=== PATIENT | female | born 1960 | race Caucasian/White ===

== ENCOUNTER 2020-06-23 07:37 | Inpatient (IN) | payer MEDICARE, OTHER ==
[2020-06-23] MEDS ORDERED: Morphine 4 MG/ML VIAL ONE (07:57)
[2020-06-23] MEDS ORDERED: Morphine 4 MG/ML VIAL IV SCH (08:00)
[2020-06-23] MEDS ORDERED: hydrALAZINE 20 MG/ML VIAL SLOW IVP PRN (08:39)
[2020-06-23] MEDS ORDERED: Dextrose 5% in Water 1,000 ML IV PRN (08:39)
[2020-06-23] MEDS ORDERED: Insulin Regular 300 UNITS/3 ML VIAL SC PRN ×2 (08:39)
[2020-06-23] MEDS ORDERED: Ondansetron PF 4 MG/2 ML Vial IVP PRN (08:39)
[2020-06-23] MEDS ORDERED: Ibuprofen 800 MG TAB PO PRN (08:39)
[2020-06-23] MEDS ORDERED: Ondansetron ODT 4 MG TAB PO PRN ×2 (08:39→08:53)
[2020-06-23] MEDS ORDERED: Acetaminophen 500 MG TAB PO SCH (08:39)
[2020-06-23] MEDS ORDERED: Dextrose 50% Abboject 50 ML SYRINGE SLOW IVP PRN (08:39)
[2020-06-23] MEDS ORDERED: Ibuprofen 600 MG TAB PO PRN (08:50)
--- NOTE | 2020-06-23 09:32 | CON ---
DATE OF CONSULTATION: HISTORY OF PRESENT ILLNESS: We were asked by Trauma and ER to see the patient. The patient was sent over from [place]. She was in her shower, slipped on the rug, landing on her left side. She also has a contusion to her left forearm and the right upper extremity hurts a little bit, but she is moving both these well. She was unable to do much. She was able to get up on the commode and called friends and EMS summoned when she came in to have a left femoral neck fracture. Currently, she is in moderate amount of pain. We just ordered some morphine for her. Daughter is at the bedside. Otherwise, she appears to be resting comfortably as long as we do not move that left lower extremity. It is outward rotated and a little bit shortened. She does have symptoms of neuropathy from her diabetes, but it is mild and she can feel pressure on her feet. Otherwise, no other sensation changes on that left side with breaking the hip. She lives alone, but family and [employer] folks are very close and would be helpful in her rehab. She is quite adamant about going home as soon as possible. We did talk about hemiarthroplasty versus a total hip and she would prefer to do whichever one can get her home, as I reiterated to her we are going to do what is going to be best for her and longevity and make sure that she is safe and she understands this. Other than the arm, she did not hit her head. No loss of consciousness. She remembers the incident vividly. No dizziness or blacking out that caused the fall, it was just a slip. PAST MEDICAL HISTORY: COPD, some of it exercise induced or movement induced; hypertension; diabetes; obesity; and some neuropathy. PAST SURGICAL HISTORY: Two C-sections. PSYCHIATRIC HISTORY: Normal, but she is a little bit of worrier. SOCIAL HISTORY: Lives alone. . Has not drink, smoke, or done any drugs for 20+ years. She has done so after finding God. FAMILY HISTORY: For this event is noncontributory. ALLERGIES: NO KNOWN DRUG ALLERGIES. CURRENT MEDICATIONS: 1. Singulair. 2. Gabapentin. 3. Metformin. 4. Crestor. 5. Losartan. 6. Potassium. 7. Tylenol. 8. She also takes a fair amount of OTC vitamins. REVIEW OF SYSTEMS: Other than some movement-induced shortness of breath, diabetes, some neuropathy, and some left hip pain and forearm pain secondary to her fall, she denies any current shortness of breath, chest pain, bowel or bladder problems. Her neuropathy is mild. She denies any other positive review of systems. PHYSICAL EXAMINATION: GENERAL: Well-nourished, well-developed, obese female, resting in bed, in room 3332, in no acute distress. Speech clear. Affect pleasant. Answers questions appropriately. She is oriented x3. Family is at bedside. HEENT: Scalp atraumatic. Face symmetric. Tongue midline. NECK: Supple. UPPER EXTREMITIES: Equal size, shape, symmetry. Normal bulk and tone. She has a little bit of edema to the left forearm; right, she fell on also, but I do not see any increased edema. She is moving both upper extremities well. Sensations intact as are movements. RESPIRATORY: Respirations are 16, no acute distress. PELVIS: No pain with rocking, but does increase left hip pain. LOWER EXTREMITIES: Equal size, shape, and symmetry. Normal bulk and tone. She is tender to palpation over the left groin, greater troch, hip area. She is able to move her lower extremities from the knees down equally. Sensations are good. She does have tingling in her feet. Pulses are intact. IMAGING DATA: X-rays show a left femoral neck fracture. LABORATORY DATA: CBC; WBC is 11.8, platelets normal, H and H normal. Chemistries; glucose 273 . Rest of chemistries are normal. ASSESSMENT: Fall with ensuing left hip fracture. PLAN: Plan is to do a total hip replacement. I have gone over a hemiarthroplasty and a total hip arthroplasty with the patient. Due to her size and her continued good activity, total hip would be much better for the patient. The patient again has family, her daughter is at the bedside. She is adamant about getting home as soon as possible. I reiterated to the patient again that we need to make sure she is safe, so she does not have further injuries upon discharging to home, which she understands. She is a little bit of a worrier. I tried to reassure, we will take good care of her and get her set up for surgery. I did go over the risks and benefits of surgery. Their questions and concerns have been addressed and the family and the patient are amenable to go forth with surgery. We will get her set up for a total hip arthroplasty tomorrow. We will let her rep know. Antibiotics will be ordered. She can eat today. Pain medications and medical management per Trauma. Job ID: [id number]
[2020-06-23] MEDS: Acetaminophen 325 MG TAB PO SCH ×3 (09:37→22:00)
[2020-06-23] MEDS: Famotidine 20 MG TAB PO SCH ×2 (09:37→22:00)
[2020-06-23] MEDS: traMADol HCl 50 MG TAB PO SCH ×3 (09:38→22:02)
[2020-06-23] MEDS: Cyclobenzaprine 10 MG TAB PO PRN ×2 (09:39→17:09)
[2020-06-23 12:41] VITALS: BMI 53.1
--- NOTE | 2020-06-23 15:09 | HP ---
CHIEF COMPLAINT: Left hip pain. HISTORY OF PRESENT ILLNESS: Ms. Urrutia is a 60-year-old female, BMI of 53.1, history of COPD, hypertension, diabetes, and some neuropathy, who was transferred from [place] this morning after a slip and fall in her bathroom, landing on her left side. She also had pain on the left forearm and right upper extremity. The patient was unable to do much. She was able to get back up on her commode and called a friend for help. The patient believes she is down for about 15 minutes before EMS was able to help her out. The patient is currently in mild pain. The daughter was at bedside this morning when we evaluated the patient. The patient lives alone at home but has a daughter and son who are about 10 and 30 minutes away from them, she lives in a close knit family and would be able to help her with outpatient rehab. The patient is expressing physical therapy outpatient and would like to go home after surgery. The patient's surgery will be on Thursday for total hip arthroplasty. Discussed with Dr. Platt. The patient denies chest pain, shortness of breath, loss of consciousness, nausea, vomiting, blurred vision. REVIEW OF SYSTEM: Negative except what was mentioned above, 10 system review of systems was assessed. PAST MEDICAL HISTORY: COPD, hypertension, diabetes, obesity, and neuropathy. PAST SURGICAL HISTORY: Two C sections. SOCIAL HISTORY: Lives alone close to her family. Does not drink, smoke, or do drugs. FAMILY HISTORY: Unknown. ALLERGIES: NO KNOWN ALLERGIES. MEDICATIONS: 1. Singulair. 2. Gabapentin. 3. Metformin. 4. Crestor. 5. Losartan. 6. Potassium. 7. Tylenol. 8. She also takes a fair amount of vitamins. PHYSICAL EXAMINATION: VITAL SIGNS: Temp 98.4, pulse 100, respiratory rate 18, O2 saturation 94, blood pressure 111/64. GENERAL: Obese female sitting up in bed, no acute distress. HEENT: Normocephalic, atraumatic. NECK: Supple. Trachea midline. CARDIAC: Nasal cannula on during exam. Speaking in full sentences. No respiratory distress. Regular rate and rhythm. ABDOMEN: Protuberant, nontender to palpation EXTREMITIES: Lower extremity, left hip pain with palpation and diminished sensation bilaterally, some tingling in feet. NEUROLOGIC: GCS 15. IMAGING: X-ray shows femoral neck fracture. LABORATORY DATA: No new labs. ASSESSMENT: 1. One ground level fall. 2. Left femoral neck fracture. 3.COPD, hypertension, diabetes, obesity, and neuropathy PLAN: A 60-year-old female status post ground level fall, left femoral neck fracture. Plan for a total hemiarthroplasty on Thursday with Dr. Platt. Medically optimized for surgery. Nebulizer treatment Nasalcanula at night time COPD, 2L per patient Diabetes sliding scale Neuropathy gabapentin Consult for PT and OT placed. Start the patient on pain and bowel regimen. Encourage incentive spirometry. Case discussed this morning over the phone with Dr. Perry. Job ID: [id number] [facility]
[2020-06-23] MEDS: Morphine 2 MG/ML VIAL SLOW IVP PRN (17:20)
[2020-06-24] MEDS: Sodium Chloride 0.9% 1,000 ML IV SCH ×3 (00:30→17:53)
[2020-06-24] MEDS: traMADol HCl 50 MG TAB PO SCH ×4 (04:08→21:34)
[2020-06-24] MEDS: Acetaminophen 325 MG TAB PO SCH ×4 (04:09→21:35)
[2020-06-24 06:55] LABS: #Basophils 0.1 thou/uL (0.0-0.2); #Eosinphils 0.2 thou/uL (0.0-0.7); #Lymphocytes 2.9 thou/uL (1.20-3.40); #Neutrophils 5.9 thou/uL (1.40-6.50); %Basophils 0.7 % (0.0-1.0); %Eosinophils 1.7 % (0.0-10.0); %Lymphocytes 28.4 % (21.0-51.0); %Monocytes 10.2 % (0.0-10.0); Hemoglobin 13.6 g/dL (12.0-16.0); Mean Corpuscular Hemoglobin 31.8 pg (27.0-31.0); Mean Corpuscular Volume 93.4 fL (78.0-98.0); Mean Platelet Volume 9.4 fL (7.4-10.4); Platelet Count 220 thou/uL (130-400); RBC Distribution Width 12.1 % (11.5-14.5); Red Blood Cell (RBC) Count 4.27 mill/uL (4.20-5.40)
[2020-06-24 07:23] LABS: Anion Gap 12 mmol/L (10-20); BUN (Urea Nitrogen) 13 mg/dL (9.8-20.1); Calc. Creatinine Clearance 169 mL/min (70-130); Calcium 8.5 mg/dL (7.8-10.44); Carbon Dioxide 25 mmol/L (22-29); Chloride 104 mmol/L (98-107); Glucose 188 mg/dL (70-105); Phosphorus 2.6 mg/dL (2.3-4.7); Potassium 3.9 mmol/L (3.5-5.1); Sodium 137 mmol/L (136-145)
[2020-06-24] MEDS: Famotidine 20 MG TAB PO SCH ×2 (09:17→20:38)
[2020-06-24] MEDS: Cyclobenzaprine 10 MG TAB PO PRN ×2 (09:17→17:59)
[2020-06-24] MEDS ORDERED: CEFAZOLIN 2 GM in Premix Bag 1 BAG IVPB SCH (12:45)
[2020-06-24] MEDS ORDERED: Vancomycin 1.5 GRAM/300 ML BAG 1.5 GM in Premix Bag 1 BAG IVPB SCH (13:00)
--- NOTE | 2020-06-24 14:10 | PRG ---
DATE OF SERVICE: 06/24/2020 SUBJECTIVE: A 60-year-old female patient. Significant past history of diabetes, neuropathy, hypertension, hyperlipidemia. status post ground level fall with left femoral neck fracture. The patient is planned to go to the OR tomorrow morning for a total knee arthroplasty with Dr. Platt. The patient's pain is well controlled on the floor. PHYSICAL EXAMINATION: VITAL SIGNS: Temp 97.9, pulse 85, respiratory rate 16, O2 saturation 93, and blood pressure 125/81. GENERAL: Obese female, sitting upright in bed, a plate of food in front of her. CARDIAC: Nasal cannula 2 L at nighttime. Speaking in full sentences. No respiratory distress. ABDOMEN: Protuberant, nontender to palpation. EXTREMITIES: Left lower extremity torn compared to the right. Palpable pulses PT, DP bilaterally. Mild tingling in feet. NEUROLOGIC: GCS 15. IMAGING: X-ray shows femoral neck fracture. LABORATORY DATA: White blood cell count 10, hemoglobin 13, hematocrit 39.9, platelets 220. Chemistry; sodium 137, potassium 3.9, chloride 104, bicarbonate 25, BUN 13, creatinine 0.77, phosphorous 2.6, magnesium 2.0. ASSESSMENT: 1. Status post ground level fall. 2. Left femoral neck fracture, OR tomorrow. 3. Past medical history of chronic obstructive pulmonary disease, hypertension, diabetes, obesity, and neuropathy. PLAN: 1. A 60-year-old female status post ground level fall. Plan for OR tomorrow with Dr. Platt for a total hemiarthroplasty. 2. The patient is medically optimized for surgery. 3. Continue nebulized treatments. 4. Nasal cannula for COPD, 2 L at nighttime. 5. Diabetes. Insulin sliding scale. Controlled. 6. Neuropathy, the patient is on gabapentin controlled. Consult PT, OT. The patient will be seen by them following surgery. We will continue the patient on bowel and pain regimen. Encourage incentive spirometry and GI prophylaxis. Job ID: [id number] [facility]
[2020-06-24] MEDS: Morphine 2 MG/ML VIAL SLOW IVP PRN (20:38)
[2020-06-24] MEDS: Montelukast Sodium 10 mg Tablet PO SCH (21:35)
[2020-06-24 22:19] LABS: SARS-CoV-2 PCR by NAA Not Detected (NotDetected)
[2020-06-25] MEDS: Sodium Chloride 0.9% 1,000 ML IV SCH ×3 (02:33→15:56)
[2020-06-25] MEDS: Acetaminophen 325 MG TAB PO SCH ×4 (03:51→21:21)
[2020-06-25] MEDS: traMADol HCl 50 MG TAB PO SCH ×4 (03:52→21:22)
[2020-06-25] MEDS: Morphine 2 MG/ML VIAL SLOW IVP PRN (04:45)
[2020-06-25 06:24] LABS: #Basophils 0.1 thou/uL (0.0-0.2); #Eosinphils 0.2 thou/uL (0.0-0.7); #Lymphocytes 2.2 thou/uL (1.20-3.40); #Neutrophils 6.8 thou/uL (1.40-6.50); %Basophils 0.9 % (0.0-1.0); %Eosinophils 1.9 % (0.0-10.0); %Lymphocytes 21.8 % (21.0-51.0); %Monocytes 9.6 % (0.0-10.0); %Neutrophils 65.8 % (42.0-75.0); Hemoglobin 13.7 g/dL (12.0-16.0); Mean Corpuscular HGB CONC 33.8 g/dL (32.0-36.0); Mean Corpuscular Hemoglobin 32.1 pg (27.0-31.0); Mean Corpuscular Volume 94.9 fL (78.0-98.0); Mean Platelet Volume 9.3 fL (7.4-10.4); Platelet Count 184 thou/uL (130-400); RBC Distribution Width 11.7 % (11.5-14.5); Red Blood Cell (RBC) Count 4.28 mill/uL (4.20-5.40); White Blood Cell (WBC) Count 10.3 thou/uL (4.8-10.8)
[2020-06-25 06:53] LABS: Anion Gap 12 mmol/L (10-20); BUN (Urea Nitrogen) 11 mg/dL (9.8-20.1); Calc. Creatinine Clearance 150 mL/min (70-130); Calcium 8.5 mg/dL (7.8-10.44); Carbon Dioxide 27 mmol/L (22-29); Chloride 104 mmol/L (98-107); Glucose 213 mg/dL (70-105); Magnesium 1.9 mg/dL (1.6-2.6); Phosphorus 2.1 mg/dL (2.3-4.7); Sodium 139 mmol/L (136-145)
[2020-06-25] MEDS: Famotidine 20 MG TAB PO SCH ×2 (08:25→21:21)
[2020-06-25] MEDS: Polyethylene Glycol 3350 17 GM Packet PO SCH (08:25)
[2020-06-25] MEDS ORDERED: Tranexamic Acid 1,000 MG in Sodium Chloride 0.9% 250 ML 250 ML IVPB SCH (08:45)
[2020-06-25] MEDS ORDERED: Senokot S 8.6-50 MG TAB PO SCH (09:00)
[2020-06-25] MEDS ORDERED: Rocuronium Bromide 10 MG/ML (10ML VIAL) ONE (10:15)
[2020-06-25] MEDS ORDERED: Glycopyrrolate 0.2 MG/ML 5 ML SYRINGE ONE (10:15)
[2020-06-25] MEDS ORDERED: PROPOFOL 200 MG/20 ML VIAL ONE (10:15)
[2020-06-25] MEDS ORDERED: Dexamethasone 20 MG/5 ML VIAL ONE (10:15)
[2020-06-25] MEDS ORDERED: Bupivacaine HCl 0.5%/Epinephrine 1:200,000/PF 30 ml Vial ONE (10:15)
[2020-06-25] MEDS ORDERED: Lidocaine 1% PF 5 ML VIAL ONE (10:15)
[2020-06-25] MEDS ORDERED: Ondansetron PF 4 MG/2 ML Vial ONE (10:15)
[2020-06-25] MEDS ORDERED: Midazolam HCl 2 mg/2 ml Vial ONE (10:51)
[2020-06-25] MEDS ORDERED: Fentanyl 100 MCG/2 ML VIAL ONE ×3 (10:51→14:36)
[2020-06-25] MEDS ORDERED: Promethazine HCl 25 MG/ML VIAL IM PRN ×3 (11:02→12:57)
[2020-06-25] MEDS ORDERED: diphenhydrAMINE 25 MG CAP PO PRN (11:02)
[2020-06-25] MEDS ORDERED: Acetaminophen 325 MG TAB PO PRN (11:02)
[2020-06-25] MEDS ORDERED: Zolpidem Tartrate 5 MG TAB PO PRN (11:02)
[2020-06-25] MEDS ORDERED: Ondansetron PF 4 MG/2 ML Vial IVP PRN (11:02)
[2020-06-25] MEDS ORDERED: HYDROcodone/Acetaminophen 10/325 mg Tablet PO PRN ×2 (11:02)
--- NOTE | 2020-06-25 11:04 | PDOC.GSPN ---
Surgery Progress Note: Subj - Subjective Patient reports: pain well controlled, tolerating a regular diet Narrative: Ms. Lizz Stoddard 60YOF admitted 06/23/2020 for right femoral neck fracture after fall. Patient is scheduled for hip replacement surgery today. Pt not in any pain unless she moves, NPO. Surgery Progress Note: Obj - Vital signs Vital signs: Vital Signs - Most Recent Temp Pulse Resp BP Pulse Ox 97.9 F 84 18 173/96 H 97 06/25/20 04:38 06/25/20 04:38 06/25/20 04:38 06/25/20 04:38 06/25/20 08:00 - Physical Exam General: no distress, well nourished, no pain ENT: normal mucosa Neck: trachea midline Cardiovascular: regular rate and rhythm, no murmur Respiratory: clear to auscultation, breath sounds present Abdomen: soft, non tender Integumentary: no rash Psychiatric: oriented to person, oriented to place, speech is normal Surgery Progress Note: Results - Labs Result Diagrams: 06/26/20 05:36 06/25/20 05:32 Lab results: Laboratory Results - last 12 hr 06/24/20 06/25/20 06/25/20 15:53 05:32 05:32 WBC 10.3 RBC 4.28 Hgb 13.7 Hct 40.6 MCV 94.9 MCH 32.1 H MCHC 33.8 RDW 11.7 Plt Count 184 MPV 9.3 Neutrophils % 65.8 Lymphocytes % 21.8 Monocytes % 9.6 Eosinophils % 1.9 Basophils % 0.9 Neutrophils # 6.8 H Lymphocytes # 2.2 Monocytes # 1.0 H Eosinophils # 0.2 Basophils # 0.1 Sodium 139 Potassium 4.0 Chloride 104 Carbon Dioxide 27 Anion Gap 12 BUN 11 Creatinine 0.87 Estimated GFR (MDRD) 67 Glucose 213 H POC Glucose 252 H Calcium 8.5 Phosphorus 2.1 L Magnesium 1.9 06/25/20 05:45 WBC RBC Hgb Hct MCV MCH MCHC RDW Plt Count MPV Neutrophils % Lymphocytes % Monocytes % Eosinophils % Basophils % Neutrophils # Lymphocytes # Monocytes # Eosinophils # Basophils # Sodium Potassium Chloride Carbon Dioxide Anion Gap BUN Creatinine Estimated GFR (MDRD) Glucose POC Glucose 175 H Calcium Phosphorus Magnesium - EKG Data Rate: normal Surgery Progress Note: A/P - Plan Plan: Assessment: Ms. Lizz Stoddard 60YOF admitted 06/23/2020 for right femoral neck fracture after fall. Patient is scheduled for hip replacement surgery today. 1. s/p ground level fall 2. left hip fx. Plan 1. full hip replacement surgery 2. Continue bowel regimen 3. Continue pain management 4. Plan PT/OT after surgery 5. Request swing bed placement Addendum - Attending - Attending Attestation Date/Time: 06/26/20 8985 I personally evaluated the patient and discussed the management with Dr. [] I agree with the History, Examination, Assessment and Plan documented above with any addition or exceptions noted below.
[2020-06-25] MEDS ORDERED: Tranexamic Acid 1,000 MG/10 ML VIAL ONE (11:23)
[2020-06-25] MEDS ORDERED: Vancomycin 1.5 GRAM/300 ML BAG ONE (11:23)
[2020-06-25] MEDS ORDERED: Sodium Chloride 0.9% 100 ML ONE (11:23)
[2020-06-25] MEDS ORDERED: Promethazine HCl 25 MG/ML VIAL SLOW IVP PRN ×2 (12:56→12:57)
[2020-06-25] MEDS ORDERED: Ondansetron HCl/PF 4 MG/2 ML Vial IVP PRN ×2 (12:56→12:57)
[2020-06-25] MEDS ORDERED: SUGAMMADEX SODIUM 200 MG/2 ML VIAL ONE (13:37)
--- NOTE | 2020-06-25 14:13 | RAD ---
2 views of the left hip: 06/25/2020 COMPARISON: 06/23/2020 HISTORY: Fracture status post hip arthroplasty FINDINGS: There is postoperative gas lateral to the left greater trochanter. There is a new left hip arthroplasty presents with no evidence for hardware failure or dislocation. IMPRESSION: Evidence of recent left total hip arthroplasty.
--- NOTE | 2020-06-25 14:45 | OP ---
DATE OF PROCEDURE: 06/23/2020 This is Marlon Torres PA-C dictating a report for Addison Vega MD. PREOPERATIVE DIAGNOSIS: Left hip femoral neck fracture. POSTOPERATIVE DIAGNOSIS: Left hip femoral neck fracture. PROCEDURE PERFORMED: Press-Fit left total hip arthroplasty for fracture treatment. DENTAL ASSOCIATE: Marlon Torres PA-C The acute care certified nursing assistant/co-surgeon was present throughout the entirety of the case. ANESTHESIA: General via endotracheal tube augmented with single-shot BRANDON block. COMPONENTS USED: [employer] Trident II Tritanium cluster acetabular shell 50 mm diameter with an Accolade II size 2 Press-Fit hip stem, 0-degree polyethylene fixed bearing insert, two 6.5 mm low-profile head screws, and a 36 mm, -2.5 neck length femoral head. FINDINGS: Femoral neck fracture as explained on radiograph. ESTIMATED BLOOD LOSS: 150 mL. DRAINS: None. SPECIMENS: None. COMPLICATIONS: Nondisplaced incomplete posterior lip acetabular fracture. INDICATION FOR SURGERY: Lizz is a 60-year-old white female, who sustained a ground level fall yesterday resulting in a left femoral neck fracture. The patient was admitted by Trauma Team and we were asked to see the patient for definitive orthopedic management of this problem. DESCRIPTION OF PROCEDURE: After informed consent was obtained in the preoperative holding area, the patient was taken to the operative suite where general anesthesia was induced. The patient was then positioned in the lateral decubitus position. The hip was then prepped and draped in usual sterile fashion. The patient received preoperative antibiotics. Prior to incision, time-out was called and all members of the surgical team agreed upon site, surgeon, and patient. After this, a longitudinal incision was made directly over the trochanter, noted by palpation extending 2 fingerbreadths above and below the trochanter. The deeper subcutaneous layer was undermined with Bovie electrocautery. The iliotibial band was encountered and incised sharply and the plane below this was developed bluntly. A Charnley retractor was placed to hold this opened. The lateral aspect of the trochanter and the abductor muscles were encountered and then reflected anteriorly off the trochanter using Bovie electrocautery. Once this was completed, the anterior capsule was then encountered and identified and copious capsulotomy was carried out, exposing the femoral neck and head. Dislocation maneuver was then performed and an in situ provisional neck cut was then made using the oscillating saw. Attention was then turned to acetabular preparation. Sequential reaming was carried out up to the appropriate diameter and a trial was then malleted into place with good firm resistance and no pullout. The permanent acetabular shell was then malleted squarely into place, as was the appropriate liner. We had good rim fit, but noticed we did not have complete Press-Fit, but noticed a posterior lip acetabular fracture after removal of the implant and re-examination, which we then decided to add 2 bone screws for stabilization. Once completed, the wound was copiously irrigated and attention was then turned to femoral preparation. Flexion and external rotation were performed of the exposed thigh and femoral elevators were then placed at the proximal aspect of the wound. Canal finder was used to establish the length of the canal and sequential reaming was carried out, followed by broaching. Once the appropriate stability was established with the trial broaches with flexion, extension and rotational stability, we did trial with neutral and 2 mm offset incremental necks. Once the appropriate size was decided upon, with good stability noted with flexion, extension, internal and external rotation and shuck being negative, we removed the femoral trial broach and malletted into place the permanent prosthesis with good firm fit, which was also stable to rotation. Again, the hip felt very stable to flexion, extension, internal and external rotation. Leg lengths appeared near anatomic clinically and we were quite happy with prosthesis placement. Copious irrigation was then carried out through the entirety of the wound. Primary closure of the abductors was accomplished with interrupted #2 Vicryl [id number] stitches and the IT band was then closed with interrupted #2 Vicryl, oversewn with a #2 running barbed Quill stitch. Subcutaneous fascia was closed with running barbed Quill stitch and a subcuticular Monocryl barbed Quill stitch was used for skin closure and augmented with skin cement. A sterile dressing was applied. The procedure was terminated without any complication. All counts were correct. The patient was awakened in the operative suite and taken to the recovery room in stable condition. The acute care certified nursing assistant surgeon helped throughout the procedure by positioning the patient, stabilizing the limb, holding retractors, aligning the prosthesis, and closure of procedure site. Job ID: [id number]
[2020-06-25] MEDS ORDERED: CEFAZOLIN 2 GM in Premix Bag 1 BAG IVPB SCH (18:00)
[2020-06-25] MEDS: CEFAZOLIN 2 GM in Premix Bag 1 BAG IVPB SCH (21:20)
[2020-06-25] MEDS: Montelukast Sodium 10 mg Tablet PO SCH (21:21)
[2020-06-25] MEDS: Aspirin 81 mg Enteric Coated Tablet PO SCH (21:22)
[2020-06-26] MEDS: Sodium Chloride 0.9% 1,000 ML IV SCH (00:50)
[2020-06-26] MEDS: traMADol HCl 50 MG TAB PO SCH ×4 (03:20→21:43)
[2020-06-26] MEDS: Acetaminophen 325 MG TAB PO SCH ×4 (03:21→21:43)
[2020-06-26] MEDS: CEFAZOLIN 2 GM in Premix Bag 1 BAG IVPB SCH (03:57)
[2020-06-26 06:01] LABS: Hemoglobin 13.1 g/dL (12.0-16.0); Mean Corpuscular HGB CONC 32.6 g/dL (32.0-36.0); Mean Corpuscular Hemoglobin 30.1 pg (27.0-31.0); Mean Corpuscular Volume 92.4 fL (78.0-98.0); Mean Platelet Volume 9.3 fL (7.4-10.4); Platelet Count 244 thou/uL (130-400); RBC Distribution Width 11.7 % (11.5-14.5); Red Blood Cell (RBC) Count 4.36 mill/uL (4.20-5.40); White Blood Cell (WBC) Count 16.5 thou/uL (4.8-10.8)
[2020-06-26] MEDS: Famotidine 20 MG TAB PO SCH (07:36)
[2020-06-26] MEDS: Polyethylene Glycol 3350 17 GM Packet PO SCH (07:36)
[2020-06-26] MEDS: Multivitamin W/ Minerals 1 TAB PO SCH (07:36)
[2020-06-26] MEDS: Ferrous Gluconate 324 MG TAB PO SCH ×2 (07:36→17:28)
[2020-06-26] MEDS: Aspirin 81 mg Enteric Coated Tablet PO SCH ×2 (07:36→21:43)
[2020-06-26] MEDS: Senokot S 8.6-50 MG TAB PO SCH ×2 (07:37→21:43)
[2020-06-26] MEDS: metFORMIN 500 MG TAB PO SCH ×2 (08:41→17:28)
[2020-06-26] MEDS: Losartan 25 MG TAB PO SCH (08:41)
[2020-06-26] MEDS ORDERED: Polyethylene Glycol 3350 17 GM Packet PO SCH (09:00)
[2020-06-26] MEDS: traMADol HCl 50 MG TAB PO PRN (09:07)
--- NOTE | 2020-06-26 15:30 | RAD ---
Exam:2 views left hip HISTORY: Status post arthroplasty COMPARISON: 06/25/2020 FINDINGS: Near anatomic alignment. Findings compatible with recent arthroplasty IMPRESSION: Near anatomic alignment.
--- NOTE | 2020-06-26 16:17 | PDOC.GSPN ---
Surgery Progress Note: Subj - Subjective Patient reports: feels better, pain well controlled Narrative: Ms. Lizz Stoddard 60YOF admitted 06/23/2020 for left femoral neck fracture after fall. POD#1 s/p L. total hip arthroplasty. Her interval account since her surgery at 11am: She does not remember being brought back to her room. She woke at 7pm to visit with her daughter. At 9pm she remembers receiving meds. She woke from pain at 3am, for which she was given hydrocodone. She remembers the blood draw. No other overnight events. Today she is awake and smiling sitting up for her exam and our conversation. She is wearing SCDs and on 2.5L O2. She noticed her IV access was moved from her L to R arm during surgery but does not remember how she got the bruise on L wrist (likely from a previous attempt). She is not in pain, but taking a lot of meds (NORCO 9:49am on status board); GCS-15. Before we finished we deferred to the surgeons rounding (presumably Dr. Addison Foster) and would refer to his note for his account. Surgery Progress Note: Obj - Vital signs Vital signs: Vital Signs - Most Recent Temp Pulse Resp BP Pulse Ox 98.4 F 74 18 132/84 94 L 06/26/20 15:37 06/26/20 15:37 06/26/20 15:37 06/26/20 15:37 06/26/20 15:37 - Physical Exam General: no distress, well nourished, no pain, obese ENT: no congestion, normal mucosa Neck: no bruits, no lymphadectomy Cardiovascular: regular rate and rhythm, no murmur Respiratory: clear to auscultation, normal respiratory effort Abdomen: soft, non tender Psychiatric: memory intact, oriented to time Surgery Progress Note: Results - Labs Result Diagrams: 06/27/20 06:11 06/27/20 06:11 Lab results: Laboratory Results - last 12 hr 06/25/20 06/26/20 06/26/20 17:51 05:12 05:36 WBC 16.5 H RBC 4.36 Hgb 13.1 Hct 40.3 MCV 92.4 MCH 30.1 MCHC 32.6 RDW 11.7 Plt Count 244 MPV 9.3 POC Glucose 191 H 207 H 03/02/21 03/02/21 12:01 15:56 WBC RBC Hgb Hct MCV MCH MCHC RDW Plt Count MPV POC Glucose 232 H 204 H - EKG Data Rate: normal Surgery Progress Note: A/P - Plan Plan: Ms. Lizz Stoddard 60YOF admitted 06/23/2020 for left femoral neck fracture after fall. POD#1 s/p L. total hip arthroplasty. Assessment: 1. s/p ground level fall 2. L. femoral neck fracture Plan: 1. Continue regular diet, bowel regimen, pain regimen. 2. Encourage PT/OT 3. Discuss goals prior to discharge. Addendum - Attending - Attending Attestation Date/Time: 06/27/20 6821 I personally evaluated the patient and discussed the management with . [] I agree with the History, Examination, Assessment and Plan documented above with any addition or exceptions noted below.
[2020-06-26] MEDS: Montelukast Sodium 10 mg Tablet PO SCH (21:43)
[2020-06-27] MEDS: Acetaminophen 325 MG TAB PO SCH ×4 (03:26→21:19)
[2020-06-27] MEDS: traMADol HCl 50 MG TAB PO SCH ×4 (03:27→21:18)
[2020-06-27 06:44] LABS: Hemoglobin 13.3 g/dL (12.0-16.0); Mean Corpuscular HGB CONC 33.3 g/dL (32.0-36.0); Mean Corpuscular Hemoglobin 31.6 pg (27.0-31.0); Mean Corpuscular Volume 94.9 fL (78.0-98.0); Mean Platelet Volume 9.2 fL (7.4-10.4); Platelet Count 253 thou/uL (130-400); RBC Distribution Width 11.9 % (11.5-14.5); Red Blood Cell (RBC) Count 4.22 mill/uL (4.20-5.40); White Blood Cell (WBC) Count 17.1 thou/uL (4.8-10.8)
[2020-06-27 06:59] LABS: Anion Gap 13 mmol/L (10-20); BUN (Urea Nitrogen) 14 mg/dL (9.8-20.1); Calc. Creatinine Clearance 165 mL/min (70-130); Carbon Dioxide 26 mmol/L (22-29); Chloride 100 mmol/L (98-107); Glucose 254 mg/dL (70-105); Magnesium 1.9 mg/dL (1.6-2.6); Phosphorus 2.6 mg/dL (2.3-4.7); Potassium 3.8 mmol/L (3.5-5.1); Sodium 135 mmol/L (136-145)
[2020-06-27] MEDS: Polyethylene Glycol 3350 17 GM Packet PO SCH (09:02)
[2020-06-27] MEDS: Aspirin 81 mg Enteric Coated Tablet PO SCH ×2 (09:02→21:18)
[2020-06-27] MEDS: Senokot S 8.6-50 MG TAB PO SCH ×2 (09:02→21:18)
[2020-06-27] MEDS: metFORMIN 500 MG TAB PO SCH ×2 (09:03→17:02)
[2020-06-27] MEDS: Multivitamin W/ Minerals 1 TAB PO SCH (09:03)
[2020-06-27] MEDS: Ferrous Gluconate 324 MG TAB PO SCH ×2 (09:03→17:02)
[2020-06-27] MEDS: Losartan 25 MG TAB PO SCH (09:03)
[2020-06-27] MEDS: traMADol HCl 50 MG TAB PO PRN (11:59)
--- NOTE | 2020-06-27 13:14 | PDOC.GSPN ---
Surgery Progress Note: Subj - Subjective Patient reports: feels better, positive flatus, pain well controlled, tolerating liquids well, no bowel movement Narrative: Ms. Lizz Urrutia 60YOF admitted 06/23/2020 for right femoral neck fracture after fall. POD#2 s/p L. total hip arthroplasty. She complains of the X-ray she had yesterday at 3:30pm, that she experienced pain as they articulated her lower extremities (the X-ray shows near-alignment). Her catheter was also removed yesterday. She ate broth for dinner; clear liquids. She slept through the night, with no overnight events. No bowel movements but a lot of passing gas. Today she is awake and smiling sitting up for her exam and our conversation. She is wearing SCDs and on 2.0L O2. She is not in any pain right now, but she complains of being hot. 5/10 is written on the board for pain scale (from a previous query). She has no appetite, but breakfast has not arrived yet, and she is now on a normal diet. During team rounding she also reported reflux and positional discomfort. We repositioned her in the hospital bed, elevated her sitting up, and this caused her quite a bit of pain in her left leg and surgical site. She also mentioned nausea today. Earlier this morning she was feeling relatively better compared to yesterday. Surgery Progress Note: Obj - Vital signs Vital signs: Vital Signs - Most Recent Temp Pulse Resp BP Pulse Ox 97.9 F 94 18 132/82 93 L 06/27/20 11:42 06/27/20 11:42 06/27/20 11:42 06/27/20 11:42 06/27/20 11:42 - Physical Exam General: no distress, well nourished, no pain, obese ENT: normal mucosa, normal nares Neck: trachea midline Cardiovascular: regular rate and rhythm, no murmur Respiratory: clear to auscultation, breath sounds present Abdomen: soft, non tender, nondistended Psychiatric: memory intact, speech is normal Wound: dressing clean,dry,intact Additional exam: GCS-15. Surgery Progress Note: Results - Labs Result Diagrams: 06/27/20 06:11 06/27/20 06:11 Lab results: Laboratory Results - last 12 hr 06/27/20 06/27/20 06/27/20 05:41 06:11 06:11 WBC 17.1 H RBC 4.22 Hgb 13.3 Hct 40.0 MCV 94.9 MCH 31.6 H MCHC 33.3 RDW 11.9 Plt Count 253 MPV 9.2 Sodium 135 L Potassium 3.8 Chloride 100 Carbon Dioxide 26 Anion Gap 13 BUN 14 Creatinine 0.79 Estimated GFR (MDRD) 74 Glucose 254 H POC Glucose 254 H Calcium 9.0 Phosphorus 2.6 Magnesium 1.9 06/27/20 11:40 WBC RBC Hgb Hct MCV MCH MCHC RDW Plt Count MPV Sodium Potassium Chloride Carbon Dioxide Anion Gap BUN Creatinine Estimated GFR (MDRD) Glucose POC Glucose 233 H Calcium Phosphorus Magnesium - EKG Data Rate: normal Surgery Progress Note: A/P - Plan Plan: Ms. Lizz Urrutia 60YOF admitted 06/23/2020 for right femoral neck fracture after fall. POD#2 s/p L. total hip arthroplasty. Assessment: 1. s/p ground level fall 2. s/p L. femoral neck fx w/ L. total hip arthroplasty repair Plan: 1. Continue regular diet, bowel regimen, pain regimen. 2. Encourage PT/OT 3. Discuss goals prior to discharge. Addendum - Attending - Attending Attestation Date/Time: 06/27/20 2158 I personally evaluated the patient and discussed the management with . [] I agree with the History, Examination, Assessment and Plan documented above with any addition or exceptions noted below.
[2020-06-27] MEDS: Montelukast Sodium 10 mg Tablet PO SCH (21:18)
[2020-06-28] MEDS: Acetaminophen 325 MG TAB PO SCH ×4 (04:20→21:04)
[2020-06-28] MEDS: traMADol HCl 50 MG TAB PO SCH ×4 (04:21→21:04)
[2020-06-28] MEDS: Ferrous Gluconate 324 MG TAB PO SCH (09:23)
[2020-06-28] MEDS: metFORMIN 500 MG TAB PO SCH ×2 (09:27→17:34)
[2020-06-28] MEDS: Senokot S 8.6-50 MG TAB PO SCH ×2 (09:27→21:05)
[2020-06-28] MEDS: Multivitamin W/ Minerals 1 TAB PO SCH (09:28)
[2020-06-28] MEDS: Aspirin 81 mg Enteric Coated Tablet PO SCH ×2 (09:28→21:05)
[2020-06-28] MEDS: Polyethylene Glycol 3350 17 GM Packet PO SCH (09:28)
[2020-06-28] MEDS: Losartan 25 MG TAB PO SCH (09:28)
--- NOTE | 2020-06-28 11:31 | RAD ---
Exam: 2 views abdomen HISTORY: Evaluate for ileus FINDINGS: Supine and right lateral decubitus view the abdomen demonstrate distended air-filled loops of colon. Scattered air in nondistended small bowel loops.. No significant air-fluid levels. No obvious evidence of pneumothorax. IMPRESSION: Nonspecific bowel gas pattern. Air-filled loops of colon. No evidence of distended loops of small bow el. Ileus is a consideration.
--- NOTE | 2020-06-28 13:26 | PDOC.GSPN ---
Surgery Progress Note: Subj - Subjective Patient reports: feels better, pain well controlled, tolerating liquids well, no bowel movement (GCS-15) Narrative: Ms. Lizz Urrutia 60YOF admitted 06/23/2020 for right femoral neck fracture after fall. POD#3 s/p L. total hip arthroplasty. She ate last night including a shake continuing on a clear diet. She stood twice and marched during both PT sessions. She slept through the night, with no overnight events. She feels better and in no pain, but on pain meds. She hasn't had a bowel movement since surgery on Thursday. She is still passing gas and complains of reflux and bloating, and feeling hot. She has IV port in L forearm with nothing hanging. She is wearing SCDs and on 2.0L O2. She is not in any pain. Earlier this morning she was feeling relatively better compared to yesterday. Surgery Progress Note: Obj - Vital signs Vital signs: Vital Signs - Most Recent Temp Pulse Resp BP Pulse Ox 98 F 96 18 133/83 95 06/28/20 11:40 06/28/20 11:40 06/28/20 11:40 06/28/20 11:40 06/28/20 11:40 - Physical Exam General: no distress, well nourished, no pain, obese ENT: no congestion, no hearing loss Neck: trachea midline Cardiovascular: regular rate and rhythm, no murmur Respiratory: clear to auscultation, breath sounds present Abdomen: soft, non tender, distended Psychiatric: memory intact Wound: dressing clean,dry,intact Additional exam: Abd percussion during team rounding by Dr. Perry Surgery Progress Note: Results - Labs Result Diagrams: 06/29/20 05:32 06/27/20 06:11 Lab results: Laboratory Results - last 12 hr 06/28/20 06/28/20 05:34 11:39 POC Glucose 214 H 217 H - EKG Data Rate: normal Surgery Progress Note: A/P - Plan Plan: Ms. Lizz Urrutia 60YOF admitted 06/23/2020 for right femoral neck fracture after fall. POD#3 s/p L. total hip arthroplasty. Assessment: 1. s/p ground level fall 2. s/p L. femoral neck fx w/ L. total hip arthroplasty repair 3. Bowel history, today's Abd X-ray report and physical exam during trauma rounds confirm post-surgical ileus. Plan: 1. Continue clears 2. Continue pain regimen. 3. Ileus: -Encourage PT/OT; increase physical activity -Bowel regimen to include mirolax, senna -Neostigmine 0.5mg subq q6H (already ordered) -Consider Movantic (Naloxegol) if on formulary/permitted Addendum - Attending - Attending Attestation Date/Time: 06/29/20 1050 I personally evaluated the patient and discussed the management with Dr. [] I agree with the History, Examination, Assessment and Plan documented above with any addition or exceptions noted below.
[2020-06-28] MEDS ORDERED: Neostigmine 0.5 MG in Admixture Fee 1 EACH SC SCH (14:00)
[2020-06-28] MEDS ORDERED: Ferrous Gluconate 324 MG TAB PO SCH (21:00)
[2020-06-28] MEDS: Montelukast Sodium 10 mg Tablet PO SCH (21:05)
[2020-06-29] MEDS: Acetaminophen 325 MG TAB PO SCH ×3 (03:33→15:54)
[2020-06-29] MEDS: traMADol HCl 50 MG TAB PO SCH ×3 (03:33→15:55)
[2020-06-29 05:59] LABS: #Basophils 0.1 thou/uL (0.0-0.2); #Eosinphils 0.5 thou/uL (0.0-0.7); #Lymphocytes 2.3 thou/uL (1.20-3.40); #Monocytes 1.7 thou/uL (0.11-0.59); #Neutrophils 11.5 thou/uL (1.40-6.50); %Basophils 0.7 % (0.0-1.0); %Lymphocytes 14.5 % (21.0-51.0); %Monocytes 10.3 % (0.0-10.0); %Neutrophils 71.5 % (42.0-75.0); Mean Corpuscular Hemoglobin 31.4 pg (27.0-31.0); Mean Corpuscular Volume 95.3 fL (78.0-98.0); Mean Platelet Volume 8.7 fL (7.4-10.4); Platelet Count 341 thou/uL (130-400); RBC Distribution Width 12.1 % (11.5-14.5); Red Blood Cell (RBC) Count 4.14 mill/uL (4.20-5.40); White Blood Cell (WBC) Count 16.1 thou/uL (4.8-10.8)
[2020-06-29 08:59] LABS: Band 1 % (5-11); Eosinophils 4 % (0-10); Lymphocytes 13 % (21-51); Monocytes 8 % (0-10)
[2020-06-29 09:00] LABS: Platelet Morphology Comment Appears Adequate
[2020-06-29] MEDS: Senokot S 8.6-50 MG TAB PO SCH (09:01)
[2020-06-29] MEDS: Multivitamin W/ Minerals 1 TAB PO SCH (09:02)
[2020-06-29] MEDS: Aspirin 81 mg Enteric Coated Tablet PO SCH (09:02)
[2020-06-29] MEDS: metFORMIN 500 MG TAB PO SCH (09:02)
[2020-06-29] MEDS: Losartan 25 MG TAB PO SCH (09:02)
[2020-06-29] MEDS: Polyethylene Glycol 3350 17 GM Packet PO SCH (09:03)
--- NOTE | 2020-06-29 12:36 | PDOC.GSPN ---
Surgery Progress Note: Subj - Subjective Patient reports: no new complaints, had a bowel movement, feels better, positive flatus, pain well controlled, tolerating liquids well Narrative: Ms. Lizz Urrutia 60YOF admitted 06/23/2020 for right femoral neck fracture after fall. POD#4 s/p L. total hip arthroplasty. Patient states that after afternoon PT she stood up and threw up. She also describes her "accident"; she finally had a large bowel movement which she subjectively describes as, "500 pounds and black". She considers both the emesis and bowel movement as positive events in her course. She states she is on a regular diet, but only tolerating clears (she is limiting herself for now). She is feeling better, and states the changes to her meds helped. She ate last night including a shake continuing on a clear diet. She is in no pain and rates it as 0/10. She is on 2L O2, and not wearing SCDs. Surgery Progress Note: Obj - Vital signs Vital signs: Vital Signs - Most Recent Temp Pulse Resp BP Pulse Ox 98.9 F 100 20 143/83 H 94 L 06/29/20 11:00 06/29/20 11:00 06/29/20 11:00 06/29/20 11:00 06/29/20 11:00 - Physical Exam General: no distress, well nourished, no pain, obese ENT: no congestion, normal mucosa Neck: no bruits, no sharif distention Respiratory: clear to auscultation, breath sounds present Abdomen: soft, non tender, nondistended Psychiatric: memory intact, oriented to time, oriented to person, oriented to place, speech is normal Wound: dressing clean,dry,intact Surgery Progress Note: Results - Labs Result Diagrams: 06/29/20 05:32 06/27/20 06:11 Lab results: Laboratory Results - last 12 hr 06/29/20 06/29/20 06/29/20 05:25 05:32 11:30 WBC 16.1 H RBC 4.14 L Hgb 13.0 Hct 39.5 MCV 95.3 MCH 31.4 H MCHC 33.0 RDW 12.1 Plt Count 341 MPV 8.7 Neutrophils % 71.5 Band Neuts % (Manual) 1 L Lymphocytes % 14.5 L Lymphocytes % (Manual) 13 L Monocytes % 10.3 H Monocytes % (Manual) 8 Eosinophils % 3.0 Eosinophils % (Manual) 4 Basophils % 0.7 Basophils % (Manual) 1 Neutrophils # 11.5 H Lymphocytes # 2.3 Monocytes # 1.7 H Eosinophils # 0.5 Basophils # 0.1 Plt Morphology Comment Appears Adequate RBC Morphology POC Glucose 225 H 236 H - EKG Data Rate: normal Surgery Progress Note: A/P - Plan Plan: Ms. Lizz Urrutia 60YOF admitted 06/23/2020 for right femoral neck fracture after fall. POD#4 s/p L. total hip arthroplasty. Assessment: 1. s/p ground level fall 2. s/p L. femoral neck fx w/ L. total hip arthroplasty repair 3. Post surgical ileus resolving Plan: 1. Continue to advance diet. 2. Continue pain regimen. 3. Ileus resolving: -Encourage PT/OT; increase physical activity -Continue bowel regimen -Continue medication regimen 4. Plan to discharge today to rehab facility (if so, will not sign this note and cancel--see discharge packet)
[2020-06-29 16:16] VITALS: BP 137/69; TEMP 98.6
== END 2020-06-29 17:09 | DRG 522 ==
LOC: SURG A 07:37
PROVIDERS: ADMIT Surgery; ATTEND Surgery
PROC: 0SRB02A Replacement of Left Hip Joint with Metal on Polyethylene Synthetic Substitute, Uncemented, Open Approach (ICD-10-PCS; principal; 2020-06-23)
DX: S72.002A Fracture of unspecified part of neck of left femur, initial encounter for closed fracture (principal); Z68.43 Body mass index [BMI] 50.0-59.9, adult; K56.7 Ileus, unspecified; J44.9 Chronic obstructive pulmonary disease, unspecified; I10 Essential (primary) hypertension; E11.40 Type 2 diabetes mellitus with diabetic neuropathy, unspecified; Z20.822 Contact with and (suspected) exposure to COVID-19; W01.0XXA Fall on same level from slipping, tripping and stumbling without subsequent striking against object, initial encounter; E66.9 Obesity, unspecified; Y92.002 Bathroom of unspecified non-institutional (private) residence as the place of occurrence of the external cause; Z79.84 Long term (current) use of oral hypoglycemic drugs
CPT/HCPCS: 36415; 36416; 74019; 80048; 83735; 84100; 85025; 85027; 87635; J0690; J1100; J1815; J2250; J2270; J2405; J2704; J3010; J3370; J3490; U0003; U0005

== ENCOUNTER 2021-07-01 14:24 | Outpatient (CLI) | payer MEDICARE, MEDICAID | END 2021-07-01 14:25 | disposition home or self-care (01) | LOC: TBSIIMAG 14:24 | PROVIDERS: ATTEND Orthopaedic Surgery Sports Medicine | DX: M51.16 Intervertebral disc disorders with radiculopathy, lumbar region (principal); M47.817 Spondylosis without myelopathy or radiculopathy, lumbosacral region; M47.815 Spondylosis without myelopathy or radiculopathy, thoracolumbar region; M47.26 Other spondylosis with radiculopathy, lumbar region; N94.9 Unspecified condition associated with female genital organs and menstrual cycle | CPT/HCPCS: 72148 ==